=== PATIENT | female | born 1975 | race Caucasian/White ===

== ENCOUNTER 2021-03-27 00:29 | Emergency (ER) | payer OTHER, SELFPAY ==
[2021-03-27 00:40] VITALS: BP 154/93; PULSE 120; RESP 18; TEMP 36.9; O2SAT 98; BMI 36.3
--- NOTE | 2021-03-27 02:49 | ED_ITS ---
HPI - General Adult General Chief complaint: General Medical Stated complaint: ?ate rat poison by accident Time Seen by Provider: 03/27/21 01:50 Source: patient Mode of arrival: ambulatory Limitations: no limitations History of Present Illness HPI narrative: Patient comes to the emergency room concerned of ingesting rat poison. Patient states that sheput mouse poison pellets in a shelf. Earlier this evening, she was drinking out of a glass that she pulled out of a cup board, she initially thought it was mouse poop, but then she realized it was a rat poison. Patient estimates there were 3 pellets. patient has no symptoms. Related Data Allergies Allergy/AdvReac Type Severity Reaction Status Date / Time No Known Allergies Allergy Verified 03/27/21 00:40 [No Known Allergies*] Review of Systems Review of Systems: Constitutional : No Weight loss, No Fever, No Chills, No Night Sweats, No Fatigue, No Malaise ENT/Mouth : No Hearing loss, No Ear Pain, No Nasal Congestion, No Sinus Pain, No Hoarseness, No sore throat, No Rhinorrhea, No Swallowing Difficulty Eyes: No Eye Pain, No Swelling, No Redness, No Foreign Body, No Discharge, No Vision Changes Cardiovascular : No Chest Pain, No SOB, No Dyspnea on Exertion, No Orthopnea, No Edema, No Palpitations Respiratory : No Cough, No Sputum, No Wheezing, No Smoke Exposure, No Dyspnea Gastrointestinal : No Nausea, No Vomiting, No Diarrhea, No Constipation, No abdominal Pain, No Hematochezia, No Melena Genitourinary : no irregular bleeding, No Dysuria, No Urinary Frequency, No Hematuria, No Urinary Incontinence, No Urgency, No Flank Pain, No Urinary Flow Changes, No Hesitancy Musculoskeletal : No joint pain, No Myalgias, No Joint Swelling Skin : No Skin Lesions, No rash Neuro : No Weakness, No Numbness, No Paresthesias, No Loss of Consciousness, No Dizziness, No Headache Psych : No Anxiety/Panic, No Depression, No SI/HI/AH/VH, No Social Issues, Heme/Lymph: No Bruising, No Bleeding,No Lymphadenopathy Endocrine : No Polyuria, No Polydipsia, No Temperature Intolerance PMFSH Social History Social History Advance Directives: No Advance Directives Information Provided: Yes Patient : No Physical Exam Vital Signs: Vital Signs: Last Vital Signs Temp 98.4 F 03/27/21 00:40 Pulse 120 H 08/08/21 00:40 Resp 18 03/27/21 00:40 BP 154/93 H 03/27/21 00:40 Pulse Ox 98 03/27/21 00:40 Body Mass Index 36.3 Const: Other: Appearance: Alert. Oriented X3. No acute distress. Eyes: Pupils equal, round and reactive to light. ENT: Pharynx normal. Neck: Normal inspection. Neck supple. No lymph nodes noted. No crepitus CVS: Normal heart rate and rhythm. Pulses normal. Normal S1 and S2 Respiratory: No respiratory distress. Breath sounds normal. No Wheezing. No rales Abdomen: Soft and nontender. No rigidity. No distention. good BS x4 Skin: Skin warm and dry. Normal skin color. Normal skin turgor. Extremities: No lower extremity edema.No Lacerations. No Rash Neuro: Oriented X 3. No motor deficit. No sensory deficit. Moving all extermities. No slurred speech. Course Course Course Narrative: Poison control was contacted. Per poison Control, the amount of poison that the patient may have ingested is minimal, not medically significant. No further recommendations. Patient's labs are at baseline, coagulation within normal limit. Patient ready for discharge. Patient remains asymptomatic Medical Decision Making Lab Data Result diagrams: 03/27/21 02:32 03/27/21 02:32 Labs: Lab Results 03/27/21 03/27/21 03/27/21 Range/Units 02:32 02:32 02:32 WBC 10.2 (4.8-10.8) X10*3/uL RBC 4.04 L (4.20-5.50) X10*6/uL Hgb 11.3 L (12.0-16.0) g/dl Hct 34.7 L (37-47) % MCV 85.9 (80-98) fL MCH 28.0 (27.0-33.0) pg MCHC 32.6 (31.0-35.0) g/dl RDW 14.2 (11.0-16.0) % Plt Count 422 H (160-400) X10*3/uL MPV 9.0 L (9.4-12.3) fL Immature Gran % (Auto) 0.4 (0.0-0.4) % Neut % (Auto) 75.9 H (45-73) % Lymph % (Auto) 15.5 L (20-40) % [place] % (Auto) 6.4 (2-11) % Eos % (Auto) 1.0 (0-4) % Baso % (Auto) 0.8 (0-2) % Lymph # (Auto) 1.6 (1.2-4.9) X10*3/uL [place] # (Auto) 0.7 (0.1-1.2) X10*3/uL Eos # (Auto) 0.1 (0.0-0.4) X10*3/uL Baso # (Auto) 0.1 (0.0-0.2) X10*3/uL Abs Immat Gran (auto) 0.04 H (0.00-0.03) X10*3/uL Absolute Neuts (auto) 7.8 (2.0-8.3) X10*3/uL Absolute Nucleated RBC 0.000 (0.0-0.012) X10*3/uL Nucleated RBC % (auto) 0.0 (0.0-0.2) /100WBC PT 11.3 (9.9-13.0) SEC INR 1.0 (0.9-1.1) APTT 33.6 (24.1-38.0) SEC Sodium 137 (135-145) mmol/L Potassium 4.2 (3.3-5.1) mmol/L Chloride 102 (96-108) mmol/L Carbon Dioxide 26 (22-29) mmol/L Anion Gap 13 (12-20) BUN 15 (9-16) mg/dL Creatinine 0.87 (0.5-1.4) mg/dL Estim Creat Clear Calc 77.1 Estimated GFR > 60 Random Glucose 113 (60-115) mg/dL Calcium 9.3 (8.4-10.2) mg/dL Total Bilirubin 0.2 (0.0-1.0) mg/dL Direct Bilirubin < 0.2 (0.0-0.5) mg/dL AST 17 (5-31) U/L ALT 17 (0-31) U/L Alkaline Phosphatase 108 (39-117) U/L Total Protein 8.0 (6.5-8.0) g/dL Albumin 4.2 (3.5-5.0) g/dL Beta HCG, Quant < 2 mIU/mL Discharge Plan Discharge Clinical Impression: Exposure to toxic chemical Patient Disposition: Home, Self-Care Additional Instructions: Please follow-up with your primary care physician tomorrow. If you have any worsening or new symptoms, please return to the emergency room or call 911
[2021-03-27 02:51] LABS: MANUAL DIFF FLAG NO
[2021-03-27 02:55] LABS: Basophils Absolute Auto 0.1 X10*3/uL (0.0-0.2); Basophils Percent Auto 0.8 % (0-2); Eosinophils Absolute Auto 0.1 X10*3/uL (0.0-0.4); Hematocrit 34.7 % (37-47); Hemoglobin 11.3 g/dl (12.0-16.0); Imm Gran Abs Auto 0.04 X10*3/uL (0.00-0.03); Imm Gran Pct Auto 0.4 % (0.0-0.4); Lymphocytes Absolute Auto 1.6 X10*3/uL (1.2-4.9); Lymphocytes Percent Auto 15.5 % (20-40); Mean Corpuscular HGB Conc 32.6 g/dl (31.0-35.0); Mean Corpuscular Volume 85.9 fL (80-98); Monocytes Absolute Auto 0.7 X10*3/uL (0.1-1.2); Monocytes Percent Auto 6.4 % (2-11); Neutrophils Absolute Auto 7.8 X10*3/uL (2.0-8.3); Neutrophils Percent Auto 75.9 % (45-73); Platelet Count 422 X10*3/uL (160-400); Red Blood Count 4.04 X10*6/uL (4.20-5.50); Red Cell Distribution Width 14.2 % (11.0-16.0); White Blood Count 10.2 X10*3/uL (4.8-10.8)
[2021-03-27 03:01] LABS: Prothrombin Time 11.3 SEC (9.9-13.0)
[2021-03-27 03:04] LABS: Partial Thromboplastin Time 33.6 SEC (24.1-38.0)
[2021-03-27 03:16] LABS: Alanine Aminotransferase 17 U/L (0-31); Albumin Level 4.2 g/dL (3.5-5.0); Alkaline Phosphatase 108 U/L (39-117); Anion Gap 13 (12-20); Aspartate Amino Transferase 17 U/L (5-31); Bilirubin Direct < 0.2 mg/dL (0.0-0.5); Bilirubin Total 0.2 mg/dL (0.0-1.0); Blood Urea Nitrogen 15 mg/dL (9-16); Calcium 9.3 mg/dL (8.4-10.2); Carbon Dioxide 26 mmol/L (22-29); Chloride 102 mmol/L (96-108); Creatinine Clr Calc Pharmacy 77.1; Estimated Glomerular Filt Rate > 60; Glucose Random 113 mg/dL (60-115); Potassium 4.2 mmol/L (3.3-5.1); Sodium 137 mmol/L (135-145)
[2021-03-27 03:22] LABS: HCG Quantitative < 2 mIU/mL
== END 2021-03-27 04:18 | disposition home or self-care (01) ==
PROVIDERS: Emergency Provider Emergency Medicine
DX: T60.4X1A Toxic effect of rodenticides, accidental (unintentional), initial encounter (principal); Y92.030 Kitchen in apartment as the place of occurrence of the external cause
CPT/HCPCS: 36415; 80048; 80076; 84702; 85025; 85610; 85730; 99283

== ENCOUNTER 2021-05-01 02:26 | Emergency (ER) | payer OTHER, SELFPAY ==
[2021-05-01 02:33] VITALS: BP 130/88; PULSE 106; O2SAT 97
[2021-05-01 02:37] VITALS: BP 121/78; PULSE 93; RESP 16; TEMP 36.6; O2SAT 98; BMI 39.6
[2021-05-01 04:40] VITALS: BP 102/64; PULSE 91; RESP 16; O2SAT 96
[2021-05-01] MEDS: Ondansetron ODT 4 MG TAB.RAPDIS TRANSLINGU (06:00)
--- NOTE | 2021-05-01 06:25 | ED.ALCOHOL ---
HPI - Alcohol General Chief Complaint: ETOH/Substance Use Stated Complaint: ETOH Time Seen by Provider: 05/01/21 05:56 Source: patient Mode of arrival: EMS History of Present Illness HPI narrative: 45-year-old female brought in by EMS after she was found in this your way after drinking ?a lot of Tequila?. Patient denies suicidal or homicidal ideation and declines the offer of detox at this time. Related Data Allergies Allergy/AdvReac Type Severity Reaction Status Date / Time No Known Allergies Allergy Verified 03/27/21 00:40 [No Known Allergies*] Review of Systems Review of Systems: Pertinent positives and negatives as stated in HPI 10 point review of systems is otherwise negative. PMFSH Past Medical History Source: nursing notes reviewed Social History Social History Advance Directives: No Patient : No Physical Exam Vital Signs: Vital Signs: Last Vital Signs Temp 97.9 F 05/01/21 02:37 Pulse 91 05/01/21 04:40 Resp 16 05/01/21 04:40 BP 102/64 05/01/21 04:40 Pulse Ox 96 05/01/21 04:40 Body Mass Index 39.6 VITAL SIGNS: Reviewed. GENERAL: Well developed, well nourished, in no acute distress. HEAD: Normocephalic/atraumatic EYES: PERRLA, EOMI OROPHARYNX: no oral lesions noted, posterior pharynx clear LUNGS: Normal breath sounds. SpO2<96> CARDIOVASCULAR: Regular rate and rhythm without noted murmurs ABDOMEN: Soft, non-tender, non-distended with bowel sounds. SKIN: Inspection of the skin reveals no rashes NEUROLOGIC: Alert and oriented x 4. Strength and sensation to light touch were grossly intact x 4. Course Course Course Narrative: 45-year-old female with history and clinical presentation consistent with alcohol intoxication. On re-evaluation patient is observed to ambulate with a steady gait and tolerate small amounts of salvador sampson. She can be discharged to home in stable condition. Signed out to Dr Fonseca. Discharge Plan Discharge Clinical Impression: Alcoholic intoxication Patient Disposition: Home, Self-Care Instructions: Alcohol Intoxication (ED) Additional Instructions: Return to the ER for acute worsening of symptoms. Referrals: Physician,Unknown [Primary Care Provider] - 2 days
[2021-05-01 06:40] VITALS: PULSE 76; RESP 16; O2SAT 96
[2021-05-01 07:45] VITALS: BP 97/58; PULSE 97; RESP 16; O2SAT 99
--- NOTE | 2021-05-01 08:02 | PC.NURSE ---
Pt tolerated crackers and salvador sampson, ambulated with this rn and steady on feet, speech clear, a/o x 4
== END 2021-05-01 09:00 | disposition home or self-care (01) ==
PROVIDERS: Emergency Provider Emergency Medicine
DX: F10.129 Alcohol abuse with intoxication, unspecified (principal); Y90.9 Presence of alcohol in blood, level not specified; Z71.41 Alcohol abuse counseling and surveillance of alcoholic
CPT/HCPCS: 99284

== ENCOUNTER 2024-04-28 20:19 | Emergency (ER) | payer SELFPAY ==
--- NOTE | ~2024-04-28 | CT_ITS ---
EXAMINATION: CTA OF THE HEAD AND NECK CLINICAL INFORMATION: Severe sudden onset of dizziness. COMPARISON: None. TECHNIQUE: Test bolus sequences followed by intravenous administration 70 mL of Omnipaque 350. Helical imaging was performed in the axial plane from the mediastinum to the skull vertex. Delayed postcontrast imaging of the head was also performed. The data was processed at the ultrasound technologist's workstation for generation of MIP sequences. Three-dimensional volume rendered reformatted images were also generated at an offline 3-D workstation. Stenoses are assessed in accordance with NASCET criteria unless otherwise indicated. This CT examination was performed using dose optimization techniques as appropriate, variously including the following: *Automated exposure control *Adjustment of mA and/or kV according to patient size (this includes techniques or standardized protocols for targeted exams where dose is matched to indication/reason for exam; i.e. extremities or head) *Use of iterative reconstruction technique DLP: 1414 mGy-cm. FINDINGS: CT head: There is no evidence of acute intracranial hemorrhage or territorial infarction. There is no loss of burgos to white matter differentiation. No abnormal mass effect or midline shift is seen. No extra-axial fluid collections are identified. There is no abnormal enhancement. The ventricles are normal in size. There is no abnormal attenuation within the brain parenchyma. The osseous structures and soft tissues are normal. The mastoid air cells and visualized portions of the paranasal sinuses are well aerated. CTA neck: The imaged aortic arch and origins of the great vessels are relatively normal with an aberrant right subclavian artery incidentally noted. There are bilateral cervical ribs with a smaller hypoplastic rib arising from the C7 vertebra on the left side, which contacts the proximal left subclavian artery without distortion. On the right side, there is a more developed right C7 rib which forms a pseudoarticulation with the right first thoracic rib. The pseudoarticulation mildly impresses upon the posterior wall of the right subclavian artery and the right C7 cervical rib contacts the proximal right vertebral artery without compression deformity. The common carotid arteries are widely patent. The carotid bifurcations are normal. The cervical internal carotid arteries are normal. The vertebral arteries opacify normally and are otherwise of normal caliber. The soft tissues of the neck are unremarkable. Maxillary molar periodontal and periapical lucencies are visible. Mild to moderate cervical spondylosis noted, more so at the C4-C5 and C5-C6 levels with uncovertebral joint spurring encroaching upon the left greater than right neural foramina. The imaged portions of the lungs demonstrate mild subsegmental atelectatic changes. CTA head: The intradural vertebral arteries and basilar artery are normal. The posterior cerebral arteries are widely patent. The internal carotid arteries are of normal caliber. The MARY and MCA vascular complexes bilaterally are normal. The venous sinuses opacify normally. 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 The cervical ribs and pseudoarticulation abut the posterior stein of the subclavian arteries on both sides and the proximal right cervical vertebral artery without significant distortion. No vascular dissection. Correlate for any symptoms of thoracic outlet syndrome and/or cervicogenic dizziness. Incidental aberrant right subclavian artery. Remainder of the cervical vasculature is normal. Normal CT angiogram of the head. No acute intracranial process. Imaging findings reported to Dr. Fonseca at 9:25 PM on 04/28/2024. Electronically signed by: Justin Ibarra MD 04/28/2024 09:30 PM EDT
--- NOTE | ~2024-04-28 | CT_ITS ---
EXAMINATION: CT HEAD WITHOUT CONTRAST CLINICAL INFORMATION: Severe sudden onset of dizziness. COMPARISON: None. TECHNIQUE: Contiguous axial imaging was performed from the skullbase to vertex without intravenous administration of contrast. This CT examination was performed using dose optimization techniques as appropriate, variously including the following: *Automated exposure control *Adjustment of mA and/or kV according to patient size (this includes techniques or standardized protocols for targeted exams where dose is matched to indication/reason for exam; i.e. extremities or head) *Use of iterative reconstruction technique DLP: 650 mGy-cm. FINDINGS: There is no evidence of acute intracranial hemorrhage or territorial infarction. No abnormal mass effect or midline shift is seen. Jackson to white matter differentiation is well preserved. No extra-axial fluid collections are identified. The ventricles are normal in size. There is no abnormal attenuation within the brain parenchyma. The osseous structures and soft tissues are normal. The mastoid air cells and visualized portions of the paranasal sinuses are well aerated. Periodontal disease partially visualized around the right second maxillary molar. CT/CT head for stroke IMPRESSION: No acute intracranial pathology. Electronically signed by: Justin Ibarra MD 04/28/2024 09:07 PM EDT
--- NOTE | 2024-04-28 20:23 | ECG_ITS ---
Test Reason : CHEST PAIN Blood Pressure : / mmHG Vent. Rate : 100 BPM Atrial Rate : 100 BPM P-R Int : 134 ms QRS Dur : 090 ms QT Int : 372 ms P-R-T Axes : 063 -18 034 degrees QTc Int : 479 ms Normal sinus rhythm Minimal voltage criteria for LVH, may be normal variant ( R in aVL ) Cannot rule out Anterior infarct (cited on or before 28-APR-2024) Abnormal ECG When compared with ECG of 04-NOV-2018 09:00, Heart rate has increased Referred By: Evelia Hillman Electronically Signed By:AMBER BARRIENTOS
[2024-04-28 20:35] VITALS: BP 150/81; PULSE 106; RESP 14; TEMP 36.3; O2SAT 99; BMI 45.8
--- NOTE | 2024-04-28 20:41 | ED.CHESTPAIN ---
HPI - Chest Pain General Chief Complaint: Chest Pain Stated Complaint: vomiting dizziness chest pain Time Seen by Provider: 04/28/24 20:41 Source: patient Mode of arrival: wheelchair Limitations: no limitations History of Present Illness ED Provider: Dr. Roxana Fonseca HPI narrative: Patient comes to the emergency room complaining of sudden onset of dizziness nausea and vomiting that started approximately an hour prior to arrival. Patient states that everything is spinning. According to the triage nurse and provider, while the patient was in the waiting room, patient seemed to be slow to respond, incontinent of urine. On arrival patient also complaining of chest pain weakness. Related Data Previous Rx's ?Medication ?Instructions ?Recorded diazepam 2 mg tablet (Valium) 2 mg PO BID PRN dizziness or 04/29/24 vertigo #4 tabs Allergies Allergy/AdvReac Type Severity Reaction Status Date / Time No Known Allergies Allergy Verified 04/28/24 20:36 [No Known Allergies*] Review of Systems Review of Systems: Constitutional : No Weight loss, No Fever, No Chills, No Night Sweats, No Fatigue, complaining of weakness ENT/Mouth : No Hearing loss, No Ear Pain, No Nasal Congestion, No Sinus Pain, No Hoarseness, No sore throat, No Rhinorrhea, No Swallowing Difficulty Eyes: No Eye Pain, No Swelling, No Redness, No Foreign Body, No Discharge, No Vision Changes Cardiovascular : Earlier today complaining of chest pressure, complaining of Chest Pain, No SOB, No Dyspnea on Exertion, No Orthopnea, No Edema, No Palpitations Respiratory : No Cough, No Sputum, No Wheezing, No Smoke Exposure, No Dyspnea Gastrointestinal : Complaining of nausea and vomiting No Diarrhea, No Constipation, No abdominal Pain, No Hematochezia, No Melena Genitourinary : no irregular bleeding, No Dysuria, No Urinary Frequency, No Hematuria, No Urinary Incontinence, No Urgency, No Flank Pain, No Urinary Flow Changes, No Hesitancy Musculoskeletal : No joint pain, No Myalgias, No Joint Swelling Skin : No Skin Lesions, No rash Neuro : No Weakness, No Numbness, No Paresthesias, No Loss of Consciousness, headache, complaining of dizziness stating that everything is spinning Psych : No Anxiety/Panic, No Depression, No SI/HI/AH/VH, No Social Issues, Heme/Lymph: No Bruising, No Bleeding,No Lymphadenopathy Endocrine : No Polyuria, No Polydipsia, No Temperature Intolerance [facility] Social History Social History Alcohol intake: current Alcohol intake frequency: holidays/special occasions only Smoked in Last 30 Days: No Use of substances other than those prescribed or required for medical reasons: No Advance Directives: No Advance Directives Information Provided: No Do you have a plan to hurt others: No Plan Patient : No Physical Exam Vital Signs: Vital Signs: Last Vital Signs Temp 98.3 F 04/29/24 00:04 Pulse 93 04/29/24 00:04 Resp 20 04/29/24 00:04 BP 139/81 04/29/24 00:04 Pulse Ox 97 04/29/24 00:04 O2 Del Method Room Air 04/29/24 00:04 BMI result Body Mass Index 36.5 Const: Other: Appearance: Alert. Oriented X3. Pale, diaphoretic, seems nauseous Eyes: Pupils equal, round and reactive to light. Mild bilateral nystagmus ENT: Pharynx normal. Neck: Normal inspection. Neck supple. No lymph nodes noted. No crepitus CVS: Normal heart rate and rhythm. Pulses normal. Normal S1 and S2 Respiratory: No respiratory distress. Breath sounds normal. No Wheezing. No rales Abdomen: Soft and nontender. No rigidity. No distention. Skin: Skin warm , diaphoretic, pale, Normal skin turgor. Extremities: No lower extremity edema. No Lacerations. No Rash Neuro: Oriented X 3. No motor deficit. No sensory deficit. Moving all extremities. No slurred speech. CN 2 through 12 grossly intact Psych: calm, cooperative, normal affect Course Course Course Narrative: This is an RME: Additional HPI, ROS, PE not included below will be deferred to primary provider. RME assessment and note performed by: Evelia Hillman PA-C This is a 48-year-old female who presents to the emergency room with acute onset dizziness, nausea and vomiting since 30 minutes ago. She was found in the waiting room incontinent of her urine. She reports that this started suddenly. Patient immediately brought back to the main emergency department to be evaluated. Medications Administered Discontinued Medications Generic Name Dose Route Start Last Admin Trade Name Freq PRN Reason Stop Dose Admin Diazepam 2.5 mg 04/28/24 20:42 04/28/24 21:30 Diazepam 10 Mg/2 Ml Cartridge IVPUSH 04/28/24 20:43 2.5 mg STAT STA Administration Sodium Chloride 1,000 mls @ 999 mls/hr 04/28/24 20:42 04/28/24 21:34 Ns IVCONT 04/28/24 21:42 999 mls/hr .Q1H1M ONE Administration Iohexol 70 ml 04/28/24 21:05 04/28/24 21:06 Iohexol 350 Mg/Ml 100 Ml Infus..Btl IV 04/28/24 21:06 70 ml ONCE ONE Administration Meclizine HCl 50 mg 04/28/24 20:42 04/28/24 22:28 Meclizine Hcl 25 Mg Tablet PO 04/28/24 20:43 50 mg ONCE ONE Administration Ondansetron HCl 4 mg 04/28/24 20:42 04/28/24 21:31 Ondansetron Hcl 4 Mg/2 Ml Vial IVPUSH 04/28/24 20:43 4 mg ONCE ONE Administration Medical Decision Making Medical Decision Making MDM Narrative: -most likely, patient has vertigo. However, CVA can not be rule out yet. Patient going immediately to CT scan to rule out posterior CVA vs carotid dissection For symptomatic treatment, patient receiving IV fluids, Zofran, meclizine and diazepam -my interpretation of labs, at baseline hematology, chronic anemia, normal chemistry, normal troponin -after the above-mentioned treatment, we tried doing orthostatic vitals. However, patient was to shaky/lightheaded/dizzy to stand up. -CTA: Posterior cerebral arteries are widely patent head CT: No intracranial bleed -admission was considered, despite not having any neurological findings, patient had trouble walking. However, shortly after patient felt comfortable walking with no dizziness. Patient states that she has been having intermittent episodes of vertigo, tinnitus and anxiety. Patient was seen by Dr. Jerez, patient can be discharged home. Patient's lives comfortable going home. Patient instructed to follow-up with ENT Differential Diagnosis Differential Diagnoses: The differential diagnosis associated with the presentation includes (As above) Admission/Observation Consideration of admission/observation: Escalation of care including admission/observation considered Consult Healthcare Provider Management of the patient was discussed with: Hospitalist Lab Data MDM Lab Attestation statement: I reviewed the patient's lab results. 04/28/24 22:03 04/28/24 22:03 Labs: Lab Results 04/28/24 04/29/24 Range/Units 22:03 00:13 WBC 10.0 (4.8-10.8) X10*3/uL RBC 4.09 L (4.20-5.50) X10*6/uL Hgb 9.7 L (12.0-16.0) g/dl Hct 30.0 L (37.0-47.0) % MCV 73.3 L (80.0-98.0) fL MCH 23.7 L (27.0-33.0) pg MCHC 32.3 (31.0-35.0) g/dl RDW 16.9 H (11.0-16.0) % Plt Count 489 H (160-400) X10*3/uL MPV 8.5 L (9.4-12.3) fL Immature Gran % (Auto) 0.4 (0.0-0.4) % Neut % (Auto) 77.9 H (45-73) % Lymph % (Auto) 13.1 L (20-40) % [place] % (Auto) 5.7 (2-11) % Eos % (Auto) 2.2 (0-4) % Baso % (Auto) 0.7 (0-2) % Lymph # (Auto) 1.3 (1.2-4.9) X10*3/uL [place] # (Auto) 0.6 (0.1-1.2) X10*3/uL Eos # (Auto) 0.2 (0.0-0.4) X10*3/uL Baso # (Auto) 0.1 (0.0-0.2) X10*3/uL Abs Immat Gran (auto) 0.04 H (0.00-0.03) X10*3/uL Absolute Neuts (auto) 7.8 (2.0-8.3) x10*3/uL Absolute Nucleated RBC 0.000 (0.0-0.012) X10*3/uL Nucleated RBC % (auto) 0.0 (0.0-0.2) /100WBC Sodium 138 (135-145) mmol/L Potassium 3.5 (3.3-5.1) mmol/L Chloride 103 (96-108) mmol/L Carbon Dioxide 26 (22-29) mmol/L Anion Gap 13 (12-20) BUN 12 (9-16) mg/dL Creatinine 0.84 (0.5-1.4) mg/dL Estim Creat Clear Calc 97.8 Estimated GFR > 60 Random Glucose 111 (60-115) mg/dL Calcium 9.2 (8.4-10.2) mg/dL Magnesium 2.1 (1.6-2.6) mg/dL Total Bilirubin 0.2 (0.0-1.0) mg/dL Direct Bilirubin < 0.2 (0.0-0.5) mg/dL AST 15 (5-31) U/L ALT 15 (0-31) U/L Alkaline Phosphatase 107 (39-117) U/L Troponin I High Sens < 2.7 (<3.5-17.0) ng/L Total Protein 8.2 H (6.5-8.0) g/dL Albumin 4.0 (3.5-5.0) g/dL Beta HCG, Quant < 2 mIU/mL Urine Color Yellow Urine Appearance Clear Urine pH 7.0 (5.0-9.0) Ur Specific [place] 1.025 (1.005-1.025) Urine Protein Negative (Neg-Trace) mg/dL Urine Glucose (UA) Negative (Negative) mg/dL Urine Ketones Negative (Negative) mg/dL Urine Blood Moderate (2+) H (Negative) Urine Nitrite Negative (Negative) Ur Leukocyte Esterase Trace H (Negative) Ethyl Alcohol < 10 mg/dL Independent Interpretation I performed an independent interpretation of an: CT Scan Radiology Impression Discussion of test interpretation with radiology: I have reviewed the radiologist's reading. Radiologist Impression: CT head: There is no evidence of acute intracranial hemorrhage or territorial infarction. There is no loss of burgos to white matter differentiation. No abnormal mass effect or midline shift is seen. No extra-axial fluid collections are identified. There is no abnormal enhancement. The ventricles are normal in size. There is no abnormal attenuation within the brain parenchyma. The osseous structures and soft tissues are normal. The mastoid air cells and visualized portions of the paranasal sinuses are well aerated. CTA neck: The imaged aortic arch and origins of the great vessels are relatively normal with an aberrant right subclavian artery incidentally noted. There are bilateral cervical ribs with a smaller hypoplastic rib arising from the C7 vertebra on the left side, which contacts the proximal left subclavian artery without distortion. On the right side, there is a more developed right C7 rib which forms a pseudoarticulation with the right first thoracic rib. The pseudoarticulation mildly impresses upon the posterior wall of the right subclavian artery and the right C7 cervical rib contacts the proximal right vertebral artery without compression deformity. The common carotid arteries are widely patent. The carotid bifurcations are normal. The cervical internal carotid arteries are normal. The vertebral arteries opacify normally and are otherwise of normal caliber. The soft tissues of the neck are unremarkable. Maxillary molar periodontal and periapical lucencies are visible. Mild to moderate cervical spondylosis noted, more so at the C4-C5 and C5-C6 levels with uncovertebral joint spurring encroaching upon the left greater than right neural foramina. The imaged portions of the lungs demonstrate mild subsegmental atelectatic changes. CTA head: The intradural vertebral arteries and basilar artery are normal. The posterior cerebral arteries are widely patent. The internal carotid arteries are of normal caliber. The MARY and MCA vascular complexes bilaterally are normal. The venous sinuses opacify normally. 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 The cervical ribs and pseudoarticulation abut the posterior stein of the subclavian arteries on both sides and the proximal right cervical vertebral artery without significant distortion. No vascular dissection. Correlate for any symptoms of thoracic outlet syndrome and/or cervicogenic dizziness. Incidental aberrant right subclavian artery. Remainder of the cervical vasculature is normal. Normal CT angiogram of the head. No acute intracranial process. Critical Care Time Critical Care Time Critical Care Time: Yes Total Critical Care Time: 75 Attestation: I have personally provided critical care time. Time includes review of lab data, radiology results, discussion with consultants, and monitoring for potential decompensation. Intervention performed as documented. Discharge Plan Discharge Clinical Impression: Vertigo Patient Disposition: Home, Self-Care Instructions: Vertigo (ED) Additional Instructions: Please follow-up with your primary care physician tomorrow. If you have any worsening or new symptoms, please return to the emergency room or call 911 Prescriptions: New diazepam [Valium] 2 mg tablet 2 mg PO BID PRN (Reason: dizziness or vertigo) Qty: 4 0RF Stand Alone Forms: Work/School Release Print Language: Yi
[2024-04-28 20:47] VITALS: BMI 36.5
[2024-04-28] MEDS: iohexoL 350 MG/ML 100 ML INFUS..BTL 70 ML IV (21:06)
[2024-04-28] MEDS: diazePAM 10 MG/2 ML CARTRIDGE 2.5 MG IVPUSH (21:30)
[2024-04-28] MEDS: ondansetron HCL 4 MG/2 ML VIAL IVPUSH (21:31)
[2024-04-28] MEDS: 0.9 % Sodium Chloride 1,000 ML 999 ML IVCONT (21:34)
[2024-04-28 21:36] VITALS: BP 132/72; PULSE 98; RESP 14; TEMP 36.7; O2SAT 98
[2024-04-28 22:09] LABS: MANUAL DIFF FLAG NO
[2024-04-28 22:10] LABS: Basophils Absolute Auto 0.1 X10*3/uL (0.0-0.2); Basophils Percent Auto 0.7 % (0-2); Eosinophils Absolute Auto 0.2 X10*3/uL (0.0-0.4); Eosinophils Percent Auto 2.2 % (0-4); Hemoglobin 9.7 g/dl (12.0-16.0); Imm Gran Abs Auto 0.04 X10*3/uL (0.00-0.03); Imm Gran Pct Auto 0.4 % (0.0-0.4); Lymphocytes Absolute Auto 1.3 X10*3/uL (1.2-4.9); Lymphocytes Percent Auto 13.1 % (20-40); Mean Corpuscular HGB Conc 32.3 g/dl (31.0-35.0); Mean Corpuscular Hemoglobin 23.7 pg (27.0-33.0); Mean Corpuscular Volume 73.3 fL (80.0-98.0); Mean Platelet Volume 8.5 fL (9.4-12.3); Monocytes Absolute Auto 0.6 X10*3/uL (0.1-1.2); Monocytes Percent Auto 5.7 % (2-11); Neutrophils Absolute Auto 7.8 x10*3/uL (2.0-8.3); Neutrophils Percent Auto 77.9 % (45-73); Platelet Count 489 X10*3/uL (160-400); Red Blood Count 4.09 X10*6/uL (4.20-5.50); Red Cell Distribution Width 16.9 % (11.0-16.0)
[2024-04-28 22:22] LABS: Ethanol < 10 mg/dL
[2024-04-28] MEDS: Meclizine HCl 25 MG TABLET 50 MG PO (22:28)
[2024-04-28 22:32] LABS: Alanine Aminotransferase 15 U/L (0-31); Alkaline Phosphatase 107 U/L (39-117); Anion Gap 13 (12-20); Aspartate Amino Transferase 15 U/L (5-31); Bilirubin Direct < 0.2 mg/dL (0.0-0.5); Bilirubin Total 0.2 mg/dL (0.0-1.0); Blood Urea Nitrogen 12 mg/dL (9-16); Calcium 9.2 mg/dL (8.4-10.2); Carbon Dioxide 26 mmol/L (22-29); Chloride 103 mmol/L (96-108); Creatinine Clr Calc Pharmacy 97.8; Estimated Glomerular Filt Rate > 60; Glucose Random 111 mg/dL (60-115); HCG Quantitative < 2 mIU/mL; Magnesium 2.1 mg/dL (1.6-2.6); Potassium 3.5 mmol/L (3.3-5.1); Sodium 138 mmol/L (135-145); Total Protein 8.2 g/dL (6.5-8.0); Troponin-I High Sensitivity < 2.7 ng/L (<3.5-17.0)
[2024-04-29 00:04] VITALS: BP 139/81; PULSE 93; RESP 20; TEMP 36.8; O2SAT 97
[2024-04-29 00:22] LABS: Appearance Urine Clear; Color Urine Yellow; Glucose Urine UA Negative (Negative); Leukocyte Esterase Urine Trace (Negative); Nitrite Urine Negative (Negative); Specific Gravity - Urine 1.025 (1.005-1.025); UMIC TRIGGER UACC YES; Urine Blood Moderate (2+) (Negative); Urine Ketones Negative (Negative); Urine Protein Negative (Neg-Trace)
--- NOTE | 2024-04-29 00:28 | P.EN_ITS ---
Event Note Date of Service: 04/29/24 Event Note: I was asked to evaluate the patient for possible admission. Patient with case of vertigo. Patient states her symptoms started 1-1/2 months ago and she has had 4 episodes of abnormal hearing, ringing sensation of left ear which is followed by sensation of room spinning. Patient is normal between the episodes. No focal deficits. Reviewed imaging in the ER. CT head without any acute abnormality. Etiology of vertigo likely peripheral as symptoms are not pers istent and associated with unilateral hearing loss and tinnitus. No limb dysmetria, dysphagia or gait impairment. Low concern for central etiology/acute CVA (symptoms have been ongoing for 1 and half months) and no indication for admission. Close outpatient follow-up. Patient agrees with the plan. Time Spent With Patient Time: Total time managing care of this patient today ____ minutes.
[2024-04-29 00:37] VITALS: BP 124/71; PULSE 91; RESP 18; TEMP 36.9; O2SAT 94
[2024-04-29 00:37] LABS: Bacteria Urine None Seen (None Seen); Hyaline Casts Urine 0-2 /LPF (0-2); RBC Urine 0-2 /HPF (0-2); WBC Urine 0-5 /HPF (0-5)
[2024-04-29 00:40] VITALS: BP 124/71; PULSE 91; RESP 18; TEMP 36.9; O2SAT 94
[2024-04-29 00:53] LABS: Amphetamine Screen Urine Not Detected (Not Detect); Barbiturates, Urine Not Detected (Not Detect); Benzodiazepines Screen Urine Not Detected (Not Detect); Buprenorphine Scr Not Detected (Not Detect); Cannabinoid Screen Urine Not Detected (Not Detect); Cocaine Screen Urine Not Detected (Not Detect); Fentanyl, urine Not Detected (Not Detect); Methadone Screen, Urine Not Detected (Not Detect); Opiate Screen Urine Not Detected (Not Detect); Oxycodone Screen Urine Not Detected (Not Detect); Phencyclidine Screen Urine Not Detected (Not Detect)
== END 2024-04-29 01:07 | disposition home or self-care (01) ==
PROVIDERS: Emergency Provider Emergency Medicine
DX: R42 Dizziness and giddiness (principal); R11.2 Nausea with vomiting, unspecified; R07.9 Chest pain, unspecified; R10.2 Pelvic and perineal pain; R53.1 Weakness; R32 Unspecified urinary incontinence; Z51.81 Encounter for therapeutic drug level monitoring; Z79.899 Other long term (current) drug therapy
CPT/HCPCS: 36415; 70450; 70496; 70498; 80048; 80076; 80307; 81001; 83735; 84484; 84702; 85025; 92950; 93005; 96374; 96375; 99285; J2405; J3360; Q9967